=== PATIENT | female | born 1975 | race Hispanic/Latino ===

== ENCOUNTER 2021-05-09 21:44 | Emergency (ER) | payer SELFPAY ==
[~2021-05-09] VITALS: Ht 160 cm; Wt 77.1 kg
[2021-05-09] MEDS ORDERED: IBUPROFEN600 MG PO (22:47)
[2021-05-09] MEDS ORDERED: PEPCID20 MG PO (22:47)
== END 2021-05-09 22:52 | disposition home or self-care (01) ==
LOC: ER 21:56
DX: F41.9 Anxiety disorder, unspecified (principal); K21.9 Gastro-esophageal reflux disease without esophagitis
CPT/HCPCS: 99283